=== PATIENT | male | born 1980 | race African-American/Black ===

== ENCOUNTER 2017-05-20 13:00 | Inpatient (IN) | payer BC ==
[~2017-05-20] VITALS: Ht 182.9 cm; Wt 61.7 kg
--- NOTE | ~2017-05-20 | PN ---
Unit #: [id number] #: [id number] Patient: LIO LEMUS [id number] [facility] [address] [place] [address] [id number] MR#: [id number] NAME: LIO LEMUS. ROOM: P259 Age: 37 Sex: M Admission Date: 05/20/2017 : 1980 Attending Physician: Aleyda Estrada M.D. Admitting Physician: Aleyda Estrada M.D. Primary Care Physician: Nikki Doctor Not In System [facility] PROGRESS NOTES DATE 05/23/2017 DISCUSSION Mr. Lemus is a 37-year-old, male who was seen today and chart was reviewed and case was discussed with the staff. He has been anxious, withdrawn and rather seclusive to himself. Meanwhile, he has been cooperative with treatment recommendations. he has been taking medications and tolerating them fairly well. MENTAL STATUS EXAM Young male who was casually dressed with fair personal hygiene, appears to be in no acute distress or discomfort. He was awake and alert with impaired attention and concentration. His mood was anxious with congruent affect. He denies any suicidal or homicidal ideation. His insight and judgement remains slightly impaired. TREATMENT PLAN 1. We will continue him on his current medications and make further adjustments as needed. 2. We will continue to follow up. Dictated by... Ruiz Holbrook/sunshine TD: 05/25/2017 02:59 JOB #: [id number] Unit #: [id number] #: [id number] Patient: LIO LEMUS [facility] PROGRESS NOTES Page 1 of 1 X Aleyda Estrada MD X PROGRESS NOTE
--- NOTE | ~2017-05-20 | PN ---
Unit #: [id number] #: [id number] Patient: LIO LEMUS [id number] [facility] [address] [place] [address] [id number] MR#: [id number] NAME: LIO LEMUS. ROOM: P259 Age: 37 Sex: M Admission Date: 05/20/2017 : 1980 Attending Physician: Aleyda Estrada M.D. Admitting Physician: Aleyda Estrada M.D. Primary Care Physician: Nikki Doctor Not In System [facility] PROGRESS NOTES DATE 05/22/2017 DISCUSSION Mr. Lemus is a 37-year-old male who was seen today and chart was reviewed and case was discussed with the staff. He remains anxious, withdrawn, depressed and rather seclusive to himself. Meanwhile, he has been cooperative with treatment recommendations and has been taking medications and tolerating them fairly well with no reported side effects. MENTAL STATUS EXAMINATION Young male who was casually dressed with fair personal hygiene and appears to be in no acute distress or discomfort. He was attention and concentration. His mood was anxious and depressed with congruent affect. His speech is slow and restricted in content. He reports having suicidal ideation but denies any homicidal ideation. His insight and judgement remains slightly impaired. TREATMENT PLAN 1. Will continue on his current medications and treatment protocol. Will monitor his response to the medications and make further adjustments as needed. 2. Will continue to follow up. Dictated by... Ruiz Holbrook/pradeep TD: 05/22/2017 16:00 JOB #: [id number] Unit #: [id number] #: [id number] Patient: LIO LEMUS [facility] PROGRESS NOTES Page 1 of 1 X Aleyda Estrada MD PROGRESS NOTE
--- NOTE | ~2017-05-20 | PN ---
Unit #: [id number] #: [id number] Patient: LIO LEMUS [id number] [facility] [address] [place] [address] [id number] MR#: [id number] NAME: LIO LEMUS. ROOM: P259 Age: 37 Sex: M Admission Date: 05/20/2017 : 1980 Attending Physician: Aleyda Estrada M.D. Admitting Physician: Aleyda Estrada M.D. Primary Care Physician: Nikki Doctor Not In System [facility] PROGRESS NOTES DATE May 24, 2017 DISCUSSION Mr. Lemus is a 37-year-old male, with mood disorder, who was seen today and chart was reviewed and the case was discussed with the staff. He has been anxious, withdrawn, and rather seclusive to himself. Meanwhile, he has been cooperative with the treatment recommendations and he has been taking the medications and tolerating them fairly well with no reported side effects. MENTAL STATUS EXAMINATION Young male, who was casually dressed with fair personal hygiene and appears to be in no acute distress or discomfort. He was awake and alert on interaction with intact orientation. His mood is anxious with a congruent affect. He denies any suicidal or homicidal ideations. His insight and judgment remain slightly impaired. TREATMENT PLAN 1. We will continue him on his current medications and treatment protocol, and will monitor his response to the medications, and make further adjustments as needed. 2. We will continue to followup. Dictated by... Ruiz Holbrook/camilla TD: 05/25/2017 11:35 JOB #: [id number] Unit #: [id number] #: [id number] Patient: LIO LEMUS [facility] PROGRESS NOTES Page 1 of 1 X Aleyda Estrada MD PROGRESS NOTE
--- NOTE | ~2017-05-20 | DS ---
Unit #: [id number] #: [id number] Patient: LIO LEMUS [id number] [facility] [address] [place] [address] [id number] MR#: [id number] NAME: LIO LEMUS ROOM: P259 Age: 37 Sex: M Admission Date: 05/20/2017 : 1980 Discharge Date: 05/25/2017 Attending Physician: Aleyda Estrada M.D. Primary Care Physician: Generic Doctor Not In System DISCHARGE SUMMARY IDENTIFYING DATA Mr. Lemus is a 37-year-old male, who is a resident of [place], [place], and was transferred to us from [facility] Main Emergency Room. DISCHARGE DIAGNOSES Psychiatric: Major depressive disorder, recurrent, moderate, without psychotic features. Medical: None. Stressors: Moderate psychosocial stressors. HISTORY OF PRESENT ILLNESS Please see initial psychiatric evaluation for details. PAST PSYCHIATRIC HISTORY Please see initial psychiatric evaluation for details. PAST MEDICAL HISTORY Please see initial psychiatric evaluation for details. HOSPITAL COURSE The [facility] and was oriented to the hospital environment. Routine p.r.n. medications were initiated, and he was started back on his home medications. Celexa as an antidepressant was initiated and he was closely monitored. He was taking the medications regularly and was tolerating them fairly well and was able to show a decent and therapeutic response with improvement in depression and anxiety and was denying any suicidal or homicidal ideations and was not seen to be a danger to self or anyone else, and as such, it was decided that he will be discharged home and will continue treatment on an outpatient basis. DISCHARGE MEDICATION Celexa 20 mg a day for depression. DISCHARGE CONDITION Stable. PROGNOSIS Fair. Dictated by... Aleyda Estrada M.D. Unit #: [id number] #: [id number] Patient: LIO LEMUS IAA/modl TD: 05/25/2017 19:40 JOB #: [id number] DISCHARGE SUMMARY Page 1 of 1 X Aleyda Estrada MD X DISCHARGE SUMMARY
--- NOTE | ~2017-05-20 | A ---
[facility] Nutrition Therapy DATE: 05/22/17 Patient: LIO WYATT Physician: LENNOXF Address: [address] Room/Bed: [address], Zip: [place] [address] Admit Date: 05/20/17 Date of : [birth year] Height: 6 0 Weight: [phone] NUTRITIONAL ASSESSMENT: REASON: LOW BMI (18.4) PATIENT ADMITTED FOR DEPRESSION AND SI PMH: ASTHMA Anthropometrics: 72", WT: 136, BMI: 18.4 Labs: NO LABS AVAILABLE Meds: CELEXA, DESYREL Assessment: PATIENT IS A 37 Y/O MALE ADMITTED FOR DEPRESSION AND SI. PATIENT IS CURRENTLY EMPLOYED, LIVES ALONE, DRINKS ETOH ON OCCASION, AND DENIES ANY SUBSTANCE ABUSE. PATIENT DOES NOT HAVE ANY HISTORY OF PSYCH TREATMENT. UPON ADMIT PATIENT STATED A POOR APPETITE WITH NO WEIGHT CHANGES IN MONTHS. THERE ARE NO GI OR SKIN ISSUES NOTED ATT. PATIENT DID NOT SCORE ANY RISK POINT AND HE IS ON A REGULAR DIET. CURRENT PSYCH MEDS MAY CAUSE WEIGHT AND APPETITE FLUCTUATIONS. Dx: INADEQUATE NUTRIENT INTAKE R/T CURRENT CONDITION, DEPRESSION AEB DECREASED APPETITE, LOW BMI Intervention: REGULAR DIET, MEDS PER MD, PSYCH Monitoring, Evaluation and Goals: 1. ADEQUATE PO INTAKES >50-75% OF MEALS 2. PREVENT, CORRECT MICRO/MACRO NUTRIENT DEFICIENCIES 3. WEIGHT; PROMOTE A STEADY WEIGHT GAIN TOWARDS A HEALTHY BMI OF 19-25, PREVENT ANY WEIGHT LOSS MONITOR: WEIGHTS, LABS, PO/FLUID INTAKES Recommendations: 1. CONTINUE REGULAR DIET TOLERATED. OFFER SNACKS BETWEEN MEALS. IF PATIENT HAS C/O HUNGER PLEASE ORDER LARGE PORTION ENTREES AND RD WILL APPROVE. WILL CONTINUE TO MONITOR PO INTAKES 2. ENCOURAGE ADEQUATE PO AND FLUID INTAKES 3. OBTAIN WEIGHTS ROUTINELY (EVERY 3-4 DAYS) 4. IF PO INTAKES ARE BELOW 50-75% OF MEALS PLEASE ORDER ENSURE BID TO PROMOTE ADEQUATE [facility] Nutrition Therapy DATE: 05/22/17 Patient: LIO WYATT Physician: FLY Address: [address] Room/Bed: [address], Zip: [place] [address] Admit Date: 05/20/17 Date of : [birth year] Height: 6 0 Weight: [id number] KCAL AND PROTEIN INTAKES. RD TO F/U PER PROTOCOL AND PRN R/T PATIENT MILDLY COMPROMISED Respectfully, JATINDER CONNOR RD, LD [employer] and Nutritional Services [facility] cc: client file
--- NOTE | ~2017-05-20 | PA ---
Unit #: [id number] #: [id number] Patient: LIO LEMUS [id number] [facility] [address] [place] [address] [id number] I MR#: [id number] NAME: LIO LEMUS ROOM: P259 Age: 37 Sex: M Admission Date: 05/20/2017 : 1980 Date of Assessment: 05/21/2017 Attending Physician: Aleyda Estrada M.D. Admitting Physician: Aleyda Estrada M.D. Primary Care Physician: Generic Doctor Not In System PSYCHIATRIC ASSESSMENT DATE OF SERVICE 05/21/2017. IDENTIFYING DATA Mr. Lemus is a 37-year-old male, who is a resident of [place], [place], and was transferred to us from [facility] Main Emergency Room. CHIEF COMPLAINT "I've a lot of stress." HISTORY OF PRESENT ILLNESS Mr. Lemus is a 37-year-old male, who is from [facility] and was taken to the emergency room at [facility] reporting increasing depression and stress and stated that stress is just a combination of life events over time and does not identify any particular triggers or stressors and reports that life is worthless and stated "it's just like I just want to lock myself up somewhere and go to bed and never wake up." He reports that in 10/2016, he in an attempt to kill himself. He reports that he woke up with a bad headache the next day and felt some relief because "I believe the headache is something I can feel." He reports that he had a recurring thought about killing himself since that particular attempt, "I just don't feel like I belong in this world. If I knew any easy way out, I would do it." He does report increasing depression, anxiety, irritability, restlessness, feelings of hopelessness and helplessness, and suicidal ideations and as such, recommendation for inpatient level of care for safety and stabilization was made and the patient was transferred to us. SUBSTANCE ABUSE HISTORY The patient reports occasional experimentation with beer, but denies any other substance abuse. PAST PSYCHIATRIC HISTORY The patient has not had any prior inpatient or outpatient psychiatric treatment. Review of the medical records indicate that currently he is not active in any treatment program, is not seeing a psychiatrist, not taking any psychotropic medications. PAST MEDICAL HISTORY Asthma. ALLERGIES Unit #: [id number] #: [id number] Patient: LIO LEMUS No known medication allergies. PERSONAL AND SOCIAL HISTORY A 37-year-old male, who reports that he is and lives alone and is unemployed and reports poor social support system. MENTAL STATUS EXAMINATION Young male who was casually dressed with fair personal hygiene, appears to be in no acute distress or discomfort. He was awake and alert on interaction with intact orientation to time, place, and person. His mood was anxious and depressed with a congruent affect. His speech was slow and restricted in content. His thought processes were disorganized with some looseness of associations and suicidal ideations. His insight and judgment remain significantly impaired. DIAGNOSTIC IMPRESSION Psychiatric: Major depressive disorder, recurrent, moderate, without psychotic features. Medical: None. Stressors: Moderate psychosocial stressors. TREATMENT PLAN 1. The patient has presented with history of mood disorder, and has been decompensating and will need inpatient hospitalization for safety and stabilization. We will start him back on his home medications. We will adjust the medications and monitor response. 2. Supportive therapy was provided to the patient. 3. Safe, structured, and nourishing environment will be provided. ESTIMATED LENGTH OF STAY 4 to 5 days. ABILITY TO HELP SELF Limited. WILLINGNESS TO HELP SELF The patient appears to be willing to help self. STRENGTHS 1. Communicative. 2. Cooperative. PROBLEMS 1. Chronic dysphoric symptoms. 2. Poor social support system. DISCHARGE CRITERIA This will be contingent upon the patient's ability to show resolution of his depression and anxiety as well as his ability to stay safe to himself, particularly after discharge from the hospital. Dictated by... Aleyda Estrada M.D. BRYSON/clotilde TD: 05/22/2017 00:52 Unit #: [id number] #: [id number] Patient: LIO LEMUS JOB #: [id number] PSYCHIATRIC ASSESSMENT Page 1 of 1 X Aleyda Estrada MD PSYCHIATRIC ASSESSMENT
--- NOTE | ~2017-05-20 | HP ---
Unit #: [id number] #: [id number] Patient: LIO WYATT [id number] [place] [address] [id number] I MR#: [id number] NAME: LIO WYATT ROOM: P259 Age: 37 Sex: M Admission Date: 05/20/2017 : 1980 Attending Physician: Aleyda Estrada M.D. Admitting Physician: Aleyda Estrada M.D. Primary Care Physician: Generic Doctor Not In System HISTORY AND PHYSICAL HISTORY OF PRESENT ILLNESS Lio is a 37 year old admitted to [address] [place] [address] with depression and verbalizing wanting to himself. PAST MEDICAL HISTORY Asthma. PAST SURGICAL HISTORY Nothing reported. ALLERGIES No known drug allergies. SOCIAL HISTORY He does not smoke, drinks alcohol on occasion. Denies illicit drug use. FAMILY HISTORY Medically noncontributory. REVIEW OF SYSTEMS CONSTITUTIONAL: No fever or chills. HEENT: Denies any sore throat, ear pain or runny nose. CARDIOVASCULAR: Denies chest pain, irregular heart rhythm or palpitations. CHEST: Denies shortness of breath or cough. No hemoptysis. GASTROINTESTINAL: Denies nausea, vomiting, diarrhea or chronic constipation. ENDOCRINE: Denies history of increased thirst or urination. No recent significant weight loss or gain. GENITOURINARY: Denies dysuria, frequency, or hematuria. SKIN: Denies any rashes. HEMATOLOGIC: Denies history of increased bleeding or bruising. MUSCULOSKELETAL: Denies any hot, swollen joints. No generalized muscle pain. NEUROLOGIC: Denies problems with vision or speech. No frequent, severe headaches. No numbness, tingling or weakness in any extremities. Denies loss of bladder or bowel control. CURRENT MEDICATIONS 1. Celexa 20 mg q day 2. Desyrel 100 mg q.h.s. p.r.n. 3. Milk of Magnesia p.r.n. 4. Maalox p.r.n. Unit #: [id number] #: [id number] Patient: LIO WYATT 5. Tylenol p.r.n. 6. Nicotine patch 14 mg q day PHYSICAL EXAMINATION GENERAL: Alert, well-nourished, in no apparent distress. VITAL SIGNS: Blood pressure 152/82, heart rate 96, respirations 16, temperature 98.6. WEIGHT: 136 pounds. HEIGHT: 6'0". SKIN: Warm and dry without rash or lesion. HEENT: Normocephalic. TMs not viewed. Oral and nasal passages clear. Conjunctivae clear. Pupils equal, round and reactive to light and accommodation. Extraocular movements intact. NECK: Supple without lymphadenopathy or thyromegaly. HEART: Regular rate and rhythm without murmur. LUNGS: Clear. ABDOMEN: Soft, nontender. : Not done. EXTREMITIES: No evidence of cyanosis, clubbing or edema. Moves all extremities without focal deficit. NEUROLOGICAL: Grossly within normal limits. Cranial Nerves: II: Visual brewster are intact. III, IV AND : Extraocular movements are intact. Pupils are equal, round and reactive to light. V: Facial sensation is grossly normal. VII: Facial movements and expression are normal. VIII: Auditory acuity grossly intact. IX, X: Uvula is midline. Phonation is normal. XI: Patient shrugs shoulders and turns head normally. XII: Tongue protrudes in the midline. Sensory and Motor Function: Sensory and motor sensation is grossly normal. Motor: moves all extremities well. Coordination: Gait is normal. Deep Tendon Reflexes: Intact. IMPRESSION Psychiatric admission RECOMMENDATIONS PSYCHIATRIC: Per psychiatrist. MEDICAL: I see no contraindications to participating in facility's activities. MEDICAL PROGNOSIS Good. MEDICAL CONDITION Stable. Dictated by... Kristi Tyler P.A.-C. for Ruiz Mata/sunshine TD: 05/21/2017 20:12 Unit #: [id number] #: [id number] Patient: LIO WYATT JOB #: [id number] HISTORY AND PHYSICAL Page 1 of 1 X Kristi Tyler HISTORY AND PHYSICAL
== END 2017-05-25 16:05 | disposition home or self-care (01) | DRG 885 ==
LOC: P2L 18:38
DX: F33.1 Major depressive disorder, recurrent, moderate (principal); R45.851 Suicidal ideations